=== PATIENT | female | born 1960 | race Caucasian/White ===

== ENCOUNTER → 2016-08-30 | Outpatient (CLI) | payer OTHER ==
--- NOTE | 2016-08-30 12:15 | XR ---
EXAMINATION TYPE: XR chest 2V DATE OF EXAM: 08/30/2016 12:03 PM COMPARISON: 11/26/2012 HISTORY: Shortness of breath TECHNIQUE: Frontal and lateral views of the chest are obtained. FINDINGS: Scattered senescent parenchymal changes noted. Hyperinflation compatible with COPD. No evidence for infiltrate. No evidence for atelectasis. Heart size is stable. Mediastinal structures are stable and grossly unremarkable. No evidence for hilar prominence. Degenerative changes dorsal spine. IMPRESSION: 1. No evidence for acute pulmonary disease.
== END ==
LOC: RADXRMAIN 11:51
PROVIDERS: ATTEND Family Medicine
DX: R06.02 Shortness of breath (principal)
CPT/HCPCS: 71020

== ENCOUNTER → 2017-01-24 | Outpatient (CLI) | payer OTHER ==
--- NOTE | 2017-01-27 10:52 | MM ---
Reason for exam: screening (asymptomatic). Last mammogram was performed 1 year ago. History: Patient is postmenopausal and has history of endometrial cancer at age 50. Benign excisional biopsy of the left breast. Physical Findings: A clinical breast exam by your physician is recommended on an annual basis and results should be correlated with mammographic findings. MG Screening Mammo w CAD Bilateral CC and MLO view(s) were taken. Prior study comparison: January 24, 2016, bilateral MG screening mammo w CAD. January 09, 2015, bilateral MG screening mammo w CAD. January 05, 2014, bilateral MG screening mammo w CAD. There are scattered fibroglandular densities. Focal asymmetry in the left anterior middle depth 5 cm from nipple upper aspect seen on MLO view. This finding is changed when compared with previous exams. ASSESSMENT: Incomplete: need additional imaging evaluation, BI-RAD 0 RECOMMENDATION: Special view mammogram of the left breast. If lesion persists on supplemental views, image directed ultrasound is recommended. [facility] will attempt to contact patient to return for supplemental views and ultrasound if indicated.
== END | disposition home or self-care (01) ==
LOC: RADMAMWWP 09:30
PROVIDERS: ATTEND Family Medicine
DX: Z12.31 Encounter for screening mammogram for malignant neoplasm of breast (principal)

== ENCOUNTER → 2017-01-28 | Outpatient (CLI) | payer OTHER ==
--- NOTE | 2017-01-29 08:00 | MM ---
Reason for exam: additional evaluation requested from abnormal screening. Last mammogram was performed less than 1 month ago. History: Patient is postmenopausal and has history of endometrial cancer at age 50. Benign excisional biopsy of the left breast. Physical Findings: Nurse did not find any significant physical abnormalities on exam. MG Work Up Mamm w CAD LT CC and MLO view(s) were taken of the left breast. Prior study comparison: January 24, 2017, bilateral MG screening mammo w CAD. January 24, 2016, bilateral MG screening mammo w CAD. January 09, 2015, bilateral MG screening mammo w CAD. There are scattered fibroglandular densities. The questioned asymmetric density superiorly disperses compatible with summation density. These results were verbally communicated with the patient and result sheet given to the patient on 01/28/17. ASSESSMENT: Negative, BI-RAD 1 RECOMMENDATION: Return to routine screening mammogram schedule for both breasts. Back on schedule.
== END | disposition home or self-care (01) ==
LOC: RADMAMWWP 14:00
PROVIDERS: ATTEND Family Medicine
DX: R92.8 Other abnormal and inconclusive findings on diagnostic imaging of breast (principal)

== ENCOUNTER → 2017-11-11 | Outpatient (CLI) | payer OTHER ==
--- NOTE | 2017-11-11 15:27 | US ---
EXAMINATION TYPE: US carotid duplex BILAT DATE OF EXAM: 11/11/2017 COMPARISON: 01/05/2014 CLINICAL HISTORY: 57-year-old female I10 HTN, Hyperlipidemia E78.5. Patient states having a TIA at 23 years old. HTN. High cholesterol TECHNIQUE: Carotid duplex ultrasound examination. Indirect Doppler criteria was utilized. FINDINGS: EXAM MEASUREMENTS: RIGHT: Peak Systolic Velocity (PSV) cm/sec ----- Right CCA: 84.2 ----- Right ICA: 69.1 ----- Right ECA: 73.5 ICA/CCA ratio: 0.8 RIGHT: End Diastole cm/sec ----- Right CCA: 31.4 ----- Right ICA: 27.4 ----- Right ECA: 18.6 LEFT: Peak Systolic Velocity (PSV) cm/sec ----- Left CCA: 107.3 ----- Left ICA: 87.5 ----- Left ECA: 78.2 ICA/CCA ratio: 0.8 LEFT: End Diastole cm/sec ----- Left CCA: 35.8 ----- Left ICA: 20.4 ----- Left ECA: 21.5 VERTEBRALS (direction of flow): Right Vertebral: Antegrade Left Vertebral: Antegrade Rhythm: Normal Customs Verifier notes: No plaque seen. Slight bilateral wall thickening. No elevated velocities or signi ficant stenosis. IMPRESSION: No hemodynamically significant stenosis appreciated in either internal carotid artery. Criteria for Assigning % of Stenosis / Diameter reduction (Estimation based on the indirect measurements of the internal carotid artery velocities (ICA PSV). 1. Normal (no stenosis)=ICA PSV < 125 cm/s: ratio < 2.0: ICA EDV<40 cm/s. 2. Less than 50% stenosis=ICA PSV < 125 cm/s: ratio < 2.0: ICA EDV<40 cm/s. 3. 50 to 69% stenosis=ICA PSV of 125 to 230 cm/s: ration 2.0 ? 4.0: ICA EDV 40-100 cm/s. 4. Greater than 70% stenosis to near occlusion= ICA PSV > 230 cm/s: ratio > 4.0: ICA EDV > 100 cm/s. 5. Near occlusion= ICA PSV velocities may be low or undetectable: variable ratio and ICA EDV. 6. Total occlusion=unable to detect flow.
== END | disposition home or self-care (01) ==
LOC: RADUSWWP 12:45
PROVIDERS: ATTEND Family Medicine
DX: E78.5 Hyperlipidemia, unspecified (principal); I10 Essential (primary) hypertension; R06.02 Shortness of breath; Z00.00 Encounter for general adult medical examination without abnormal findings
CPT/HCPCS: 93005; 93880

== ENCOUNTER → 2017-11-11 | Outpatient (CLI) | payer OTHER ==
--- NOTE | 2017-11-11 14:41 | XR ---
EXAMINATION TYPE: XR chest 2V DATE OF EXAM: 11/11/2017 COMPARISON: 08/30/2016 HISTORY: 57-year-old female with shortness of breath TECHNIQUE: Frontal and lateral views FINDINGS: Heart normal size. Aorta and pulmonary vasculature within normal limits. Mild interstitial prominence is unchanged and has a chronic appearance. No consolidation or pleural effusion. IMPRESSION: Chronic changes without acute cardiopulmonary process.
== END | disposition home or self-care (01) ==
LOC: RADXRMAIN 12:18
PROVIDERS: ATTEND Family Medicine
DX: J98.4 Other disorders of lung (principal); R06.02 Shortness of breath; I10 Essential (primary) hypertension; E78.5 Hyperlipidemia, unspecified
CPT/HCPCS: 71046

== ENCOUNTER → 2017-12-09 | Outpatient (CLI) | payer OTHER | END | disposition home or self-care (01) | LOC: CPPFTMAIN 12:56 | PROVIDERS: ATTEND Family Medicine | DX: R06.02 Shortness of breath (principal) | CPT/HCPCS: 94060; 94726; 94729 ==

== ENCOUNTER → 2018-01-26 | Outpatient (CLI) | payer OTHER ==
--- NOTE | 2018-01-27 13:47 | MM ---
Reason for exam: screening (asymptomatic). Last mammogram was performed 1 year ago. History: Patient is postmenopausal and has history of endometrial cancer at age 50. Benign excisional biopsy of the left breast. Physical Findings: A clinical breast exam by your physician is recommended on an annual basis and results should be correlated with mammographic findings. MG Screening Mammo w CAD Bilateral CC and MLO view(s) were taken. Prior study comparison: January 28, 2017, left breast MG work up mamm w CAD LT. January 24, 2017, bilateral MG screening mammo w CAD. There are scattered fibroglandular densities. There is no discrete abnormality. No significant changes when compared with prior studies. ASSESSMENT: Negative, BI-RAD 1 RECOMMENDATION: Routine screening mammogram of both breasts in 1 year.
== END | disposition home or self-care (01) ==
LOC: RADMAMWWP 10:02
PROVIDERS: ATTEND Family Medicine
DX: Z12.31 Encounter for screening mammogram for malignant neoplasm of breast (principal)
CPT/HCPCS: 77067

== ENCOUNTER → 2018-10-27 | Outpatient (CLI) | payer OTHER ==
--- NOTE | 2018-10-27 13:15 | XR ---
EXAMINATION TYPE: XR chest 2V DATE OF EXAM: 10/27/2018 COMPARISON: 11/11/2017 HISTORY: Shortness of breath TECHNIQUE: Frontal and lateral views of the chest are obtained. FINDINGS: Scattered senescent parenchymal changes noted. Hyperinflation compatible with COPD. No evidence for infiltrate. No evidence for atelectasis. Heart size is stable. Mediastinal structures are stable and grossly unremarkable. No evidence for hilar prominence. Degenerative changes dorsal spine. IMPRESSION: 1. No evidence for acute pulmonary disease.
== END | disposition home or self-care (01) ==
LOC: RADXRMAIN 12:49
PROVIDERS: ATTEND Family Medicine
DX: R06.02 Shortness of breath (principal)
CPT/HCPCS: 71046

== ENCOUNTER → 2019-01-27 | Outpatient (CLI) | payer OTHER ==
--- NOTE | 2019-01-27 09:50 | BD ---
EXAMINATION TYPE: Axial Bone Density DATE OF EXAM: 01/27/2019 COMPARISON: NONE CLINICAL HISTORY: Postmenopausal female Height: 61 IN Weight: 204 LBS FRAX RISK QUESTIONS: Secondary Osteoporosis: Current Tobacco Use: YES RISK FACTORS HISTORY OF: Active: YES Diet low in dairy products/other sources of calcium: YES Postmenopausal woman: AGE 53 TOTAL HYSTERECTOMY MEDICATIONS: Thyroid Medications: Which medication: Synthroid How Long: SINCE AGE 17 Additional Medications: VIT D, SYNTHROID, IBUPROFEN, HIGH BLOOD PRESSURE MEDS, CYCLOBENZAPRINE, PAIN MEDS, BREATHING MEDS Additional History: PT HAD ENDOMETRIAL CANCER AGE 53 EXAM MEASUREMENTS: Bone mineral densitometry was performed using the [employer] System. Bone mineral density as measured about the Lumbar spine is: ----- L1-L4(G/cm2): 1.245 T Score Values are as follows: ----- L2: 0.4 ----- L3: 1.7 ----- L4: 0.0 ----- L1-L4: 0.5 Bone mineral density BASELINE Bone mineral density about the R hip (g/cm2): 0.949 Bone mineral density about the L hip (g/cm2): 0.817 T Score values are as follows: -----R Neck: -0.6 -----L Neck: -1.6 -----R Total: -0.6 -----L Total: -0.5 Bone mineral density BASELINE IMPRESSION: Osteopenia (T Score between -2.5 and -1) femoral neck level in the left hip. There is slightly increased risk of fracture and the patient may be considered for treatment. Re-Screen 2-5 years. NOTE: T-SCORE=SD OF THE YOUNG ADULT MEAN.
--- NOTE | 2019-01-27 13:22 | MM ---
Reason for exam: screening (asymptomatic). Last mammogram was performed 1 year ago. History: Patient is postmenopausal and has history of endometrial cancer at age 50. Benign excisional biopsy of the left breast. Physical Findings: A clinical breast exam by your physician is recommended on an annual basis and results should be correlated with mammographic findings. MG Screening Mammo w CAD Bilateral CC and MLO view(s) were taken. Prior study comparison: January 26, 2018, bilateral MG screening mammo w CAD. January 28, 2017, left breast MG work up mamm w CAD LT. There are scattered fibroglandular densities. Finding: There is a 6-7 mm circumscribed oval mass in the upper outer quadrant, anterior position of the right breast. ASSESSMENT: Incomplete: need additional imaging evaluation, BI-RAD 0 RECOMMENDATION: Special view mammogram and ultrasound of the right breast. [facility] will attempt to contact patient to return for supplemental views and ultrasound.
== END | disposition home or self-care (01) ==
LOC: RADMAMWWP 08:23
PROVIDERS: ATTEND Family Medicine
DX: Z12.31 Encounter for screening mammogram for malignant neoplasm of breast (principal); M85.89 Other specified disorders of bone density and structure, multiple sites; M85.88 Other specified disorders of bone density and structure, other site
CPT/HCPCS: 77067; 77080

== ENCOUNTER → 2019-02-10 | Outpatient (CLI) | payer OTHER ==
--- NOTE | 2019-02-11 08:24 | MM ---
Reason for exam: additional evaluation requested from abnormal screening. Last mammogram was performed less than 1 month ago. History: Patient is postmenopausal and has history of endometrial cancer at age 50. Benign excisional biopsy of the left breast. Physical Findings: Nurse did not find any significant physical abnormalities on exam. MG Work Up Mamm w CAD RT Spot compression CC, spot compression MLO, and LM view(s) were taken of the right breast. Prior study comparison: January 27, 2019, bilateral MG screening mammo w CAD. January 26, 2018, bilateral MG screening mammo w CAD. There are scattered fibroglandular densities. The previously seen abnormality resolves on additional views and appears as fibroglandular tissue compatible with summation. No suspicious abnormality. Asymmetry on CC relates to the patient's nipple, MLO relates to a tortuous vessel. These results were verbally communicated with the patient and result sheet given to the patient on 02/10/19. ASSESSMENT: Benign, BI-RAD 2 RECOMMENDATION: Return to routine screening mammogram schedule for both breasts.
== END | disposition home or self-care (01) ==
LOC: RADMAMWWP 14:36
PROVIDERS: ATTEND Family Medicine
DX: R92.8 Other abnormal and inconclusive findings on diagnostic imaging of breast (principal)
CPT/HCPCS: 77065

== ENCOUNTER → 2019-11-23 | Outpatient (CLI) | payer OTHER ==
--- NOTE | 2019-11-23 11:23 | XR ---
EXAMINATION TYPE: XR chest 2V DATE OF EXAM: 11/23/2019 COMPARISON: Prior chest x-ray October 27, 2018. HISTORY: History of asthma with shortness of breath. TECHNIQUE: Frontal and lateral views of the chest are obtained. FINDINGS: There is no focal air space opacity, pleural effusion, or pneumothorax seen. The cardiac silhouette size is stable and within normal limits. The osseous structures are intact. IMPRESSION: No acute cardiopulmonary process. No significant change from prior.
== END | disposition home or self-care (01) ==
LOC: RADXRMAIN 10:42
PROVIDERS: ATTEND Family Medicine
DX: R06.02 Shortness of breath (principal)
CPT/HCPCS: 71046

== ENCOUNTER → 2020-01-12 | Outpatient (CLI) | payer OTHER ==
--- NOTE | 2020-01-13 10:48 | MM ---
Reason for exam: screening (asymptomatic). Last mammogram was performed 11 months ago. History: Patient is postmenopausal and has history of endometrial cancer at age 50. Benign excisional biopsy of the left breast. Took hormonal contraceptives for 6 years beginning at age 17. Physical Findings: A clinical breast exam by your physician is recommended on an annual basis and results should be correlated with mammographic findings. MG Screening Mammo w CAD Bilateral CC and MLO view(s) were taken. Prior study comparison: February 10, 2019, right breast MG work up mamm w CAD RT. January 27, 2019, bilateral MG screening mammo w CAD. There are scattered fibroglandular densities. There is no discrete abnormality. No significant changes when compared with prior studies. ASSESSMENT: Negative, BI-RAD 1 RECOMMENDATION: Routine screening mammogram of both breasts in 1 year.
== END | disposition home or self-care (01) ==
LOC: RADMAMWWP 09:13
PROVIDERS: ATTEND Family Medicine
DX: Z12.31 Encounter for screening mammogram for malignant neoplasm of breast (principal)
CPT/HCPCS: 77067

== ENCOUNTER → 2020-12-26 | Outpatient (CLI) | payer OTHER ==
--- NOTE | 2020-12-26 12:34 | XR ---
EXAMINATION TYPE: XR chest 2V DATE OF EXAM: 12/26/2020 COMPARISON: 11/23/2019 HISTORY: Short of breath TECHNIQUE: Frontal and lateral views of the chest are obtained. FINDINGS: There is no focal air space opacity, pleural effusion, or pneumothorax seen. The cardiac silhouette size is within normal limits. The osseous structures are intact. IMPRESSION: No acute cardiopulmonary process.
== END | disposition home or self-care (01) ==
LOC: RADXRMAIN 12:10
PROVIDERS: ATTEND Family Medicine
DX: R06.02 Shortness of breath (principal)
CPT/HCPCS: 71046

== ENCOUNTER → 2021-01-17 | Outpatient (CLI) | payer OTHER ==
--- NOTE | 2021-01-22 08:22 | MM ---
Reason for exam: screening (asymptomatic). Last mammogram was performed 1 year ago. History: Patient is postmenopausal and has history of endometrial cancer at age 50. Benign excisional biopsy of the left breast. Took hormonal contraceptives for 6 years beginning at age 17. Physical Findings: A clinical breast exam by your physician is recommended on an annual basis and results should be correlated with mammographic findings. MG Screening Mammo w CAD Bilateral CC and MLO view(s) were taken. Prior study comparison: January 12, 2020, bilateral MG screening mammo w CAD. February 10, 2019, right breast MG work up mamm w CAD RT. There are scattered fibroglandular densities. No significant changes when compared with prior studies. ASSESSMENT: Benign, BI-RAD 2 RECOMMENDATION: Routine screening mammogram of both breasts in 1 year.
== END | disposition home or self-care (01) ==
LOC: RADMAMWWP 14:00
PROVIDERS: ATTEND Family Medicine
DX: Z12.31 Encounter for screening mammogram for malignant neoplasm of breast (principal); Z78.0 Asymptomatic menopausal state; Z85.42 Personal history of malignant neoplasm of other parts of uterus; Z79.3 Long term (current) use of hormonal contraceptives
CPT/HCPCS: 77067

== ENCOUNTER → 2022-01-18 | Outpatient (CLI) | payer OTHER ==
--- NOTE | 2022-01-21 09:39 | MM ---
Reason for Exam: Screening (asymptomatic). Last screening mammogram was performed 12 month(s) ago. Patient History: Menarche at age 10. First Full-Term at age 16. Left ovary removed at age 50. Right ovary removed at age 50. Hysterectomy at age 50. Postmenopausal. Endometrial cancer, age 50. Hormonal Contraceptives for 6 years from age 17 until age 23. Benign Excisional Biopsy on the left side. Risk Values: Ester 5 year model risk: 1.3%. NCI Lifetime model risk: 5.7%. Prior Study Comparison: 02/10/2019 Right Diagnostic Mammogram, LOCATED [facility]IN [facility]. 01/12/2020 Bilateral Screening Mammogram, [facility]IN [facility]. 01/17/2021 Bilateral Screening Mammogram, [facility]. Tissue Density: There are scattered fibroglandular densities. Findings: Analyzed By CAD. There is no suspicious group of microcalcifications or new suspicious mass in either breast. Overall Assessment: Negative, BI-RAD 1 Management: Screening Mammogram of both breasts in 1 year. A clinical breast exam by your physician is recommended on an annual basis and results should be correlated with mammographic findings. Electronically signed and approved by: Toney Roberts DO
== END | disposition home or self-care (01) ==
LOC: RADMAMWWP 15:48
PROVIDERS: ATTEND Family Medicine
DX: Z12.31 Encounter for screening mammogram for malignant neoplasm of breast (principal); Z85.3 Personal history of malignant neoplasm of breast; Z78.0 Asymptomatic menopausal state
CPT/HCPCS: 77067

== ENCOUNTER → 2023-01-11 | Outpatient (CLI) | payer OTHER ==
--- NOTE | 2023-01-11 12:20 | XR ---
EXAMINATION TYPE: XR chest 2V DATE OF EXAM: 01/11/2023 12:16 PM COMPARISON: Chest radiographs from 12/26/2020 TECHNIQUE: XR chest 2V Frontal and lateral views of the chest. CLINICAL INDICATION:Female, 62 years old with history of R06.02/Z00.00; FINDINGS: Lungs/Pleura: There is no evidence of pleural effusion, focal consolidation, or pneumothorax. Pulmonary vascularity: Unremarkable. Heart/mediastinum: Cardiomediastinal silhouette is unremarkable. Musculoskeletal: No acute osseous pathology. Mild multilevel degenerative disc disease of the thoraci c spine. IMPRESSION: No acute cardiopulmonary disease/process.
== END | disposition home or self-care (01) ==
LOC: RADXRMAIN 12:01
PROVIDERS: ATTEND Family Medicine
DX: Z00.00 Encounter for general adult medical examination without abnormal findings (principal); R06.02 Shortness of breath
CPT/HCPCS: 71046

== ENCOUNTER → 2023-01-29 | Outpatient (CLI) | payer OTHER ==
--- NOTE | 2023-01-30 20:53 | MM ---
Reason for Exam: Screening (asymptomatic). Last screening mammogram was performed 12 month(s) ago. Patient History: Menarche at age 10. First Full-Term at age 16. Left ovary removed at age 50. Right ovary removed at age 50. Hysterectomy at age 50. Postmenopausal. Endometrial cancer, age 50. Hormonal Contraceptives for 6 years from age 17 until age 23. Benign Excisional Biopsy on the left side. Risk Values: Ester 5 year model risk: 1.4%. NCI Lifetime model risk: 5.6%. Prior Study Comparison: 01/12/2020 Bilateral Screening Mammogram, [facility]. 01/17/2021 Bilateral Screening Mammogram, [facility]. 01/18/2022 Bilateral MG screening mammo w CAD, [facility]. Tissue Density: There are scattered fibroglandular densities. Findings: Analyzed By CAD. There is no suspicious group of microcalcifications or new suspicious mass in either breast. Overall Assessment: Negative, BI-RAD 1 Management: Screening Mammogram of both breasts in 1 year. . Patient should continue monthly self-breast exams. A clinical breast exam by your physician is recommended on an annual basis. This exam should not preclude additional follow-up of suspicious palpable abnormalities. Note on Ester scores and lifetime risk: 1. A Ester score greater than 3% is considered moderate risk. If this is the case, consider specialist referral to assess eligibility for a risk reducing agent. 2. If overall lifetime risk for the development of breast cancer is 20% or higher, the patient may qualify for future screening with alternating mammogram and breast MRI. Electronically signed and approved by: Riri Bui M.D. Radiologist
== END | disposition home or self-care (01) ==
LOC: RADMAMWWP 15:40
PROVIDERS: ATTEND Family Medicine
DX: Z12.31 Encounter for screening mammogram for malignant neoplasm of breast (principal); Z78.0 Asymptomatic menopausal state
CPT/HCPCS: 77067

== ENCOUNTER → 2023-10-06 | Outpatient (CLI) | payer OTHER ==
--- NOTE | 2023-10-06 18:45 | XR ---
EXAMINATION TYPE: XR knee complete RT DATE OF EXAM: 10/06/2023 CLINICAL HISTORY: pain TECHNIQUE: Three views of the right knee are obtained. COMPARISON: None. FINDINGS: There is no acute fracture/dislocation. Total knee arthrodesis is well seated femoral and tibial components in place. The overlying soft tissue appears unremarkable. IMPRESSION: There is no acute fracture or dislocation.ICD 10 NO FRACTURE, INITIAL EVALUATION
== END | disposition home or self-care (01) ==
LOC: RADXRMAIN 17:36
PROVIDERS: ATTEND Family Medicine
DX: M25.561 Pain in right knee (principal)